=== PATIENT | male | born 1965 | race Caucasian/White ===

== ENCOUNTER → 2018-04-10 | Outpatient (CLI) | payer OTHER ==
[~2018-04-10] MED LIST: AVALIDE 300-121 EACH PO; HYDROCHLOROTH12.5 MG PO; NEXIUM40 MG PO; PROVENTIL HFA6.7 G1 INH
== END ==
LOC: M.RAD 10:34
DX: M17.11 Unilateral primary osteoarthritis, right knee (principal); M25.461 Effusion, right knee; M71.21 Synovial cyst of popliteal space [Baker], right knee

== ENCOUNTER → 2018-04-13 | Outpatient (CLI) | payer OTHER | LOC: M.ULTRA 09:18 | DX: M71.21 Synovial cyst of popliteal space [Baker], right knee (principal); M25.561 Pain in right knee; G89.29 Other chronic pain ==